=== PATIENT | female | born 1995 | race Caucasian/White ===

== ENCOUNTER 2022-01-15 21:31 | Emergency (ER) | payer OTHER ==
[2022-01-16 00:20] LABS: HEMOGLOBIN 13.5 gm/dl (12.3-15.3); RED BLOOD COUNT 4.81 M/UL (4.00-5.10); WHITE BLOOD COUNT 10.6 K/UL (4.5-11.0)
[2022-01-16 01:00] LABS: BUN/CREATININE RATIO 18 (0-10)
[2022-01-16] MEDS ORDERED: BACTRIM DS TAB1 EACH PO (01:59)
[2022-01-16] MEDS ORDERED: CEPHALEXIN500 M1 PO (01:59)
== END 2022-01-16 02:06 | disposition home or self-care (01) ==
LOC: ER1 21:31
PROVIDERS: Physician Assistant Medical
DX: L03.115 Cellulitis of right lower limb (principal)
CPT/HCPCS: 10060; 80053; 85025; 87070; 87205; 96374; 99283; J1885